=== PATIENT | female | born 1980 | race Caucasian/White ===

== ENCOUNTER 2017-02-26 23:10 | Inpatient (IN) | payer OTHER ==
[~2017-02-26] VITALS: Ht 175.3 cm; Wt 90.3 kg
[~2017-02-26 23:10] MED LIST: LIDOCAINE MPF 1% 50 MG/5 ML AMP INJ ONE; LIDOCAINE PF 1% 30ML(POUR BTL) INJ ONE
[2017-02-27] MEDS ORDERED: LR 1,000 ML IV ONE (00:03)
[2017-02-27] MEDS ORDERED: OXYTOCIN/NORMAL SALINE 1,000 ML IV SCH ×3 (00:03→19:58)
[2017-02-27 00:10] VITALS: BP_SYST 140
[2017-02-27] MEDS ORDERED: TERBUTALINE SULFATE 1 MG/ML VIAL SUBCUT ONE (00:15)
[2017-02-27] MEDS ORDERED: NALBUPHINE HCL 10 MG/ML AMP IM PRN (00:15)
[2017-02-27] MEDS ORDERED: AMPICILLIN SODIUM 2 GM in NS 100 ML IV ONE (00:15)
[2017-02-27] MEDS ORDERED: NALBUPHINE HCL 10 MG/ML AMP IVP PRN (00:15)
[2017-02-27] MEDS ORDERED: AMPICILLIN SODIUM 2 GM VIAL ONE (01:35)
[2017-02-27] MEDS: LR 1,000 ML IV SCH (02:10)
[2017-02-27] MEDS ORDERED: AMPICILLIN SODIUM 1 GM in NS 50 ML IV SCH (03:00)
[2017-02-27] MEDS ORDERED: AMPICILLIN SODIUM 1 GM VIAL ONE (05:00)
[2017-02-27] MEDS ORDERED: FENT2mCg/mL-ROPIVA0.2%/NS EPID 150 ML EP ONE (10:04)
[2017-02-27 10:14] LABS: BASOPHILS # (AUTO) 0.5 K/uL (0.0-0.2); BASOPHILS % (AUTO) 4.2 % (0.0-2.0); EOSINOPHILS % (AUTO) 0.2 % (0.0-4.0); HEMATOCRIT 39.8 % (36-48); HEMOGLOBIN 12.8 g/dL (12.0-16.0); LYMPHOCYTES % (AUTO) 17.7 % (20.5-51.5); MEAN CORPUSCULAR HEMOGLOBIN 26 pg (27-31); MEAN CORPUSCULAR HGB CONC 32 % (32-36); MEAN CORPUSCULAR VOLUME 80 fL (79.0-98.0); MONOCYTES # (AUTO) 0.8 K/uL (0.0-1.0); MONOCYTES % (AUTO) 7.3 % (1.7-9.3); NEUTROPHILS # (AUTO) 7.8 K/uL (1.8-7.7); NEUTROPHILS % (AUTO) 70.6 % (40.0-70.0); PLATELET COUNT (AUTO) 267 K/uL (130-430); RED BLOOD CELL COUNT(AUTO) 4.97 MIL/uL (4.2-6.2); RED CELL DISTRIBUTION WIDTH 13.5 % (9.0-15.0); WHITE BLOOD COUNT (AUTO) 11.1 K/uL (4.8-10.8)
[2017-02-27] MEDS ORDERED: FENT2mCg/mL-ROPIVA0.2%/NS EPID 150 ML EP SCH (11:45)
[2017-02-27] MEDS ORDERED: HYDROmorphone 1 MG INJ. 1 MG/ML AMPUL ONE (19:40)
[2017-02-27] MEDS ORDERED: OXYTOCIN/NORMAL SALINE 1,000 ML IV ONE (19:58)
[2017-02-27] MEDS ORDERED: SENNOSIDES/DOCUSATE SODIUM 1 TAB TABLET(SENOKOT-S) PO PRN (20:00)
[2017-02-27] MEDS ORDERED: HYDROmorphone 1 MG INJ. 1 MG/ML AMPUL IVP PRN (20:00)
[2017-02-27] MEDS ORDERED: MEASLES,MUMPS&RUBELLA VACC/PF 12500 UNIT/0.5 ML VIAL SUBQ PRN (20:00)
[2017-02-27] MEDS ORDERED: GLYCERIN/WITCH HAZEL (TUCKS PADS) TP PRN (20:00)
[2017-02-27] MEDS ORDERED: LANOLIN 7 GM OINT. TP PRN (20:00)
[2017-02-27] MEDS ORDERED: HYDROCORTISONE 0.5%, 28.35 GM TOPICAL CREAM TP PRN (20:00)
[2017-02-27] MEDS ORDERED: RHO(D) IMMUNE GLOBULIN/MALTOSE 1500 UNITS/1.3 ML (WINHRO) IM PRN (20:00)
[2017-02-27] MEDS ORDERED: DERMOPLAST SPRAY TP PRN (20:00)
[2017-02-27] MEDS ORDERED: ANUSOL 1 EA SUPP.RECT (PREPARATION H) RC PRN (20:00)
[2017-02-27] MEDS ORDERED: HYDROcodone/ACETAMIN 5-325 MG TAB (NORCO/ VICODIN) PO PRN (20:00)
[2017-02-27] MEDS ORDERED: TEMAZEPAM 15 MG CAPSULE PO PRN (21:00)
[2017-02-27] MEDS: OXYCODONE/ACETAMINOPHEN 5-325 TABLET PO PRN (23:06)
[2017-02-28] MEDS: IBUPROFEN 600 MG TABLET PO SCH ×4 (00:19→17:50)
[2017-02-28] MEDS: OXYCODONE/ACETAMINOPHEN 5-325 TABLET PO PRN ×4 (03:05→20:23)
[2017-02-28] MEDS: LR 1,000 ML IV SCH (04:23)
[2017-02-28 06:40] LABS: BASOPHILS % (AUTO) 0.3 % (0.0-2.0); EOSINOPHILS # (AUTO) 0.1 K/uL (0.0-0.4); EOSINOPHILS % (AUTO) 0.4 % (0.0-4.0); HEMATOCRIT 32.3 % (36-48); HEMOGLOBIN 10.6 g/dL (12.0-16.0); LYMPHOCYTES # (AUTO) 1.5 K/uL (1.0-5.5); LYMPHOCYTES % (AUTO) 9.9 % (20.5-51.5); MEAN CORPUSCULAR HEMOGLOBIN 26 pg (27-31); MEAN CORPUSCULAR HGB CONC 33 % (32-36); MEAN CORPUSCULAR VOLUME 80 fL (79.0-98.0); MONOCYTES # (AUTO) 1.1 K/uL (0.0-1.0); MONOCYTES % (AUTO) 7.4 % (1.7-9.3); NEUTROPHILS # (AUTO) 12.7 K/uL (1.8-7.7); PLATELET COUNT (AUTO) 201 K/uL (130-430); RED BLOOD CELL COUNT(AUTO) 4.03 MIL/uL (4.2-6.2); RED CELL DISTRIBUTION WIDTH 13.4 % (9.0-15.0); WHITE BLOOD COUNT (AUTO) 15.4 K/uL (4.8-10.8)
[2017-02-28 10:24] LABS: HEPATITIS B SURFACE AG Negative (Negative)
[2017-02-28 11:20] LABS: RUBELLA AB, IgG 1.59 index (Immune >0.99)
[2017-02-28] MEDS: DOCUSATE SODIUM 100 MG CAPSULE PO PRN (11:56)
[2017-03-01] MEDS: DOCUSATE SODIUM 100 MG CAPSULE PO PRN (00:16)
[2017-03-01] MEDS: OXYCODONE/ACETAMINOPHEN 5-325 TABLET PO PRN ×2 (00:17→03:59)
[2017-03-01] MEDS: IBUPROFEN 600 MG TABLET PO SCH ×3 (05:56→11:22)
== END 2017-03-01 16:35 | disposition home or self-care (01) | DRG 775 ==
LOC: SPU 23:10
PROVIDERS: ADMIT Specialist; ATTEND Specialist
PROC: 10D07Z6 Extraction of Products of Conception, Vacuum, Via Natural or Artificial Opening (ICD-10-PCS; principal; 2017-02-27)
PROC: 0W8NXZZ Division of Female Perineum, External Approach (ICD-10-PCS; 2017-02-27)
PROC: 00HU33Z Insertion of Infusion Device into Spinal Canal, Percutaneous Approach (ICD-10-PCS; 2017-02-27)
PROC: 3E0S3CZ (ICD-10-PCS; 2017-02-27)
PROC: 3E0234Z Introduction of Serum, Toxoid and Vaccine into Muscle, Percutaneous Approach (ICD-10-PCS; 2017-02-27)
DX: O76 Abnormality in fetal heart rate and rhythm complicating labor and delivery (principal); O75.89 Other specified complications of labor and delivery; O77.0 Labor and delivery complicated by meconium in amniotic fluid; O69.81X0 Labor and delivery complicated by cord around neck, without compression, not applicable or unspecified; E66.3 Overweight; Z68.29 Body mass index [BMI] 29.0-29.9, adult; Z37.0 Single live birth; Z3A.38 38 weeks gestation of pregnancy; O09.523 Supervision of elderly multigravida, third trimester; Z23 Encounter for immunization
CPT/HCPCS: 36415; 81002-TC; 85025; 86592; 86762; 86886; 86900; 86901; 87340; 87536; J0290; J1170; J2001; J2300; J2590; J3010

== ENCOUNTER 2018-10-15 04:45 | Inpatient (IN) | payer OTHER ==
[~2018-10-15] VITALS: Ht 172.7 cm; Wt 92.5 kg
[2018-10-15] MEDS ORDERED: LR 1,000 ML IV ONE (04:55)
[2018-10-15] MEDS ORDERED: NALBUPHINE HCL 10 MG/ML AMP IVP PRN (05:00)
[2018-10-15] MEDS ORDERED: LR 1,000 ML IV SCH (05:00)
[2018-10-15 05:03] VITALS: BP_SYST 132
[2018-10-15] MEDS ORDERED: OXYTOCIN/0.9 % SODIUM CHLORIDE 1,000 ML IV ONE ×2 (05:40→14:53)
[2018-10-15 07:21] LABS: HEMATOCRIT 35.2 % (36-48); WHITE BLOOD COUNT (AUTO) 6.3 K/uL (4.8-10.8)
[2018-10-15 07:29] LABS: HEMOGLOBIN 11.4 g/dL (12.0-16.0); MEAN CORPUSCULAR HEMOGLOBIN 25 pg (27-31); MEAN CORPUSCULAR HGB CONC 32 % (32-36); MEAN CORPUSCULAR VOLUME 78 fL (79.0-98.0); PLATELET COUNT (AUTO) 252 K/uL (130-430); RED BLOOD CELL COUNT(AUTO) 4.53 MIL/uL (4.2-6.2)
[2018-10-15 09:16] LABS: BAND % (MANUAL) 1 % (0-6); LYMPHOCYTES % (MANUAL) 26 % (20-46); MONOCYTES % (MANUAL) 4 % (0-11)
[2018-10-15 09:17] LABS: BASOPHILS % (MANUAL) 0 % (0-2); EOSINOPHILS % (MANUAL) 2 % (0-7)
[2018-10-15] MEDS ORDERED: OXYTOCIN 10 UNIT/ML VIAL ONE (10:33)
[2018-10-15] MEDS ORDERED: DOCUSATE SODIUM 100 MG CAPSULE PO ONE (14:37)
[2018-10-15] MEDS ORDERED: OXYCODONE/ACETAMINOPHEN *10*mg/325 mg TABLET ONE (14:38)
[2018-10-15] MEDS ORDERED: OXYCODONE/ACETAMINOPHEN 5-325 TABLET ONE (14:40)
[2018-10-15] MEDS ORDERED: OXYTOCIN/0.9 % SODIUM CHLORIDE 1,000 ML IV SCH (14:53)
[2018-10-15] MEDS ORDERED: HYDROcodone/ACETAMIN 5-325 MG TAB (NORCO/ VICODIN) PO PRN (15:00)
[2018-10-15] MEDS ORDERED: DERMOPLAST SPRAY TP PRN (15:00)
[2018-10-15] MEDS ORDERED: ANUSOL 1 EA SUPP.RECT (PREPARATION H) RC PRN (15:00)
[2018-10-15] MEDS ORDERED: MEASLES,MUMPS&RUBELLA VACC/PF 12500 UNIT/0.5 ML VIAL SUBQ PRN (15:00)
[2018-10-15] MEDS ORDERED: RHO(D) IMMUNE GLOBULIN/MALTOSE 1500 UNITS/1.3 ML (WINHRO) IM PRN (15:00)
[2018-10-15] MEDS ORDERED: DOCUSATE SODIUM 100 MG CAPSULE PO PRN (15:00)
[2018-10-15] MEDS ORDERED: WITCH HAZEL LEAF 1 MED.PAD MED.PAD TP PRN (15:00)
[2018-10-15] MEDS ORDERED: SENNOSIDES/DOCUSATE SODIUM 1 TAB TABLET(SENOKOT-S) PO PRN (15:00)
[2018-10-15] MEDS ORDERED: METHYLERGONOVINE MALEATE 0.2 MG TABLET PO PRN (15:00)
[2018-10-15] MEDS ORDERED: LANOLIN 7 GM OINT. TP PRN (15:00)
[2018-10-15] MEDS ORDERED: OXYCODONE/ACETAMINOPHEN 5-325 TABLET PO PRN ×2 (15:00)
[2018-10-15] MEDS ORDERED: DIPH-TET-PERTUS Vaccine 0.5 ML VIAL (ADACEL) I.M. PRN (15:00)
[2018-10-15] MEDS: IBUPROFEN 600 MG TABLET PO SCH (17:41)
[2018-10-15] MEDS ORDERED: TEMAZEPAM 15 MG CAPSULE PO PRN (21:00)
[2018-10-16] MEDS: IBUPROFEN 600 MG TABLET PO SCH ×2 (05:55→12:00)
[2018-10-16 06:59] LABS: HEMATOCRIT 35.6 % (36-48); HEMOGLOBIN 11.5 g/dL (12.0-16.0); MEAN CORPUSCULAR HEMOGLOBIN 26 pg (27-31); MEAN CORPUSCULAR HGB CONC 32 % (32-36); MEAN CORPUSCULAR VOLUME 79 fL (79.0-98.0); PLATELET COUNT (AUTO) 239 K/uL (130-430); RED CELL DISTRIBUTION WIDTH 14.6 % (9.0-15.0); WHITE BLOOD COUNT (AUTO) 8.5 K/uL (4.8-10.8)
[2018-10-16 10:41] LABS: BAND % (MANUAL) 9 % (0-6); LYMPHOCYTES % (MANUAL) 23 % (20-46)
[2018-10-16 10:42] LABS: BASOPHILS % (MANUAL) 0 % (0-2); EOSINOPHILS % (MANUAL) 0 % (0-7); MONOCYTES % (MANUAL) 13 % (0-11)
[2018-10-16] MEDS ORDERED: LIDOCAINE PF 1% 30ML(POUR BTL) INJ ONE (12:05)
== END 2018-10-16 16:00 | disposition home or self-care (01) | DRG 807 ==
LOC: SPU 04:45
PROVIDERS: ADMIT Specialist; ATTEND Specialist
PROC: 0W8NXZZ Division of Female Perineum, External Approach (ICD-10-PCS; principal; 2018-10-15)
PROC: 10D07Z6 Extraction of Products of Conception, Vacuum, Via Natural or Artificial Opening (ICD-10-PCS; 2018-10-15)
DX: O76 Abnormality in fetal heart rate and rhythm complicating labor and delivery (principal); Z37.0 Single live birth; Z3A.39 39 weeks gestation of pregnancy
CPT/HCPCS: 36415; 85007; 85027; 86592; 86886; 86900; 86901; J2001; J2590